=== PATIENT | female | born 1960 | race Caucasian/White ===

== ENCOUNTER 2023-08-08 12:27 | Outpatient (CLI) | payer MEDICARE, MEDICAID, SELFPAY | END 2023-08-08 12:28 | disposition home or self-care (01) | PROVIDERS: PCP Family Medicine; Visit Provider Family Medicine | DX: I10 Essential (primary) hypertension (principal); M10.9 Gout, unspecified | CPT/HCPCS: 80048; 80061; 84460; 85025 ==

== ENCOUNTER 2023-08-21 12:22 | Outpatient (CLI) | payer MEDICARE, MEDICAID, SELFPAY | END 2023-08-21 12:23 | disposition home or self-care (01) | LOC: WOUND 12:24 | PROVIDERS: PCP Family Medicine; Visit Provider Nurse Practitioner Family | DX: I87.312 Chronic venous hypertension (idiopathic) with ulcer of left lower extremity (principal); E11.622 Type 2 diabetes mellitus with other skin ulcer; L97.822 Non-pressure chronic ulcer of other part of left lower leg with fat layer exposed; I89.0 Lymphedema, not elsewhere classified; Z79.84 Long term (current) use of oral hypoglycemic drugs | CPT/HCPCS: 97602; G0463 ==

== ENCOUNTER 2023-10-10 12:20 | Outpatient (CLI) | payer MEDICARE, MEDICAID, SELFPAY | END 2023-10-10 12:21 | disposition home or self-care (01) | PROVIDERS: PCP Family Medicine; Visit Provider Family Medicine | DX: N39.46 Mixed incontinence (principal); I10 Essential (primary) hypertension | CPT/HCPCS: 80048; 85025; 87086 ==

== ENCOUNTER 2023-12-03 12:48 | Outpatient (CLI) | payer MEDICARE, MEDICAID, SELFPAY | END 2023-12-03 12:49 | disposition home or self-care (01) | LOC: WOUND 12:48 | PROVIDERS: PCP Family Medicine; Visit Provider Nurse Practitioner Family | DX: I87.313 Chronic venous hypertension (idiopathic) with ulcer of bilateral lower extremity (principal); E11.43 Type 2 diabetes mellitus with diabetic autonomic (poly)neuropathy; I89.0 Lymphedema, not elsewhere classified; L97.212 Non-pressure chronic ulcer of right calf with fat layer exposed; L97.221 Non-pressure chronic ulcer of left calf limited to breakdown of skin; L97.818 Non-pressure chronic ulcer of other part of right lower leg with other specified severity; L97.828 Non-pressure chronic ulcer of other part of left lower leg with other specified severity; Z79.4 Long term (current) use of insulin; Z79.84 Long term (current) use of oral hypoglycemic drugs | CPT/HCPCS: 97602; G0463 ==

== ENCOUNTER 2023-12-10 14:26 | Outpatient (CLI) | payer MEDICARE, MEDICAID, SELFPAY | END 2023-12-10 14:27 | disposition home or self-care (01) | LOC: WOUND 14:26 | PROVIDERS: PCP Family Medicine; Visit Provider Nurse Practitioner Family | DX: I87.313 Chronic venous hypertension (idiopathic) with ulcer of bilateral lower extremity (principal); E11.43 Type 2 diabetes mellitus with diabetic autonomic (poly)neuropathy; L97.818 Non-pressure chronic ulcer of other part of right lower leg with other specified severity; L97.828 Non-pressure chronic ulcer of other part of left lower leg with other specified severity; Z79.84 Long term (current) use of oral hypoglycemic drugs | CPT/HCPCS: G0463 ==

== ENCOUNTER 2024-01-21 14:58 | Outpatient (CLI) | payer MEDICARE, MEDICAID, SELFPAY | END 2024-01-21 14:59 | disposition home or self-care (01) | LOC: WOUND 14:58 | PROVIDERS: PCP Family Medicine; Visit Provider Nurse Practitioner Family | DX: I87.312 Chronic venous hypertension (idiopathic) with ulcer of left lower extremity (principal); I89.0 Lymphedema, not elsewhere classified; L97.828 Non-pressure chronic ulcer of other part of left lower leg with other specified severity; E11.43 Type 2 diabetes mellitus with diabetic autonomic (poly)neuropathy; Z79.84 Long term (current) use of oral hypoglycemic drugs | CPT/HCPCS: 80053; 83735; 85025; 97602; G0463 ==

== ENCOUNTER 2024-02-12 10:34 | Outpatient (CLI) | payer MEDICARE, MEDICAID, SELFPAY | END 2024-02-12 10:35 | disposition home or self-care (01) | LOC: FBOREF 10:35 | PROVIDERS: PCP Family Medicine; Visit Provider Family Medicine | DX: I10 Essential (primary) hypertension (principal) | CPT/HCPCS: 80048 ==

== ENCOUNTER 2024-04-23 12:51 | Outpatient (CLI) | payer MEDICARE, MEDICAID, SELFPAY | END 2024-04-23 12:52 | disposition home or self-care (01) | LOC: NFLDREF 04-26 12:12 | PROVIDERS: PCP Family Medicine; Referring Provider Family Medicine; Visit Provider Family Medicine | DX: I10 Essential (primary) hypertension (principal); E11.42 Type 2 diabetes mellitus with diabetic polyneuropathy; M17.12 Unilateral primary osteoarthritis, left knee; N18.30 Chronic kidney disease, stage 3 unspecified; B37.31 Acute candidiasis of vulva and vagina; F33.9 Major depressive disorder, recurrent, unspecified; M54.50 Low back pain, unspecified; F31.9 Bipolar disorder, unspecified | CPT/HCPCS: 80048; 85025 ==

== ENCOUNTER 2024-09-08 16:58 | Outpatient (CLI) | payer MEDICARE, MEDICAID, SELFPAY | END 2024-09-08 16:59 | disposition home or self-care (01) | PROVIDERS: PCP Family Medicine; Visit Provider Family Medicine | DX: I10 Essential (primary) hypertension (principal); E78.2 Mixed hyperlipidemia; E11.42 Type 2 diabetes mellitus with diabetic polyneuropathy; E66.01 Morbid (severe) obesity due to excess calories | CPT/HCPCS: 80048; 80061; 84460; 85025 ==

== ENCOUNTER 2024-11-14 09:32 | Outpatient (CLI) | payer MEDICARE, MEDICAID, SELFPAY ==
[2024-11-14] MEDS: PERFLUTREN LIPID MICROSPHERES 2 ML VIAL IVP (10:29)
--- NOTE | 2024-11-14 10:37 | PC.NURSE ---
20 G IV placed in right hand. Definity given per library technical assistant. Iv removed intact once test completed.
== END 2024-11-14 09:33 | disposition home or self-care (01) ==
LOC: RAD 09:33
PROVIDERS: PCP Family Medicine; Visit Provider Family Medicine
DX: I50.32 Chronic diastolic (congestive) heart failure (principal)
CPT/HCPCS: 80048; 93306; Q9957

== ENCOUNTER 2024-12-16 10:16 | Outpatient (CLI) | payer MEDICARE, MEDICAID, SELFPAY | END 2024-12-16 10:17 | disposition home or self-care (01) | LOC: INJ CL 10:18 | PROVIDERS: PCP Family Medicine; Visit Provider Family Medicine | DX: M54.16 Radiculopathy, lumbar region (principal); M51.369 Other intervertebral disc degeneration, lumbar region without mention of lumbar back pain or lower extremity pain | CPT/HCPCS: 62323; J0702; Q9966 ==

== ENCOUNTER 2025-01-02 12:09 | Outpatient (CLI) | payer MEDICARE, MEDICAID, SELFPAY | END 2025-01-02 12:10 | disposition home or self-care (01) | PROVIDERS: PCP Family Medicine; Visit Provider Family Medicine | DX: I12.9 Hypertensive chronic kidney disease with stage 1 through stage 4 chronic kidney disease, or unspecified chronic kidney disease (principal); N18.30 Chronic kidney disease, stage 3 unspecified | CPT/HCPCS: 80048; 83735 ==

== ENCOUNTER 2025-01-27 09:36 | Outpatient (CLI) | payer MEDICARE, MEDICAID, SELFPAY | END 2025-01-27 09:37 | disposition home or self-care (01) | LOC: INJ CL 09:37 | PROVIDERS: PCP Family Medicine; Visit Provider Family Medicine | DX: M25.551 Pain in right hip (principal); M16.11 Unilateral primary osteoarthritis, right hip | CPT/HCPCS: 20610; 77002; Q9966 ==

== ENCOUNTER 2025-02-11 14:16 | Outpatient (CLI) | payer MEDICARE, MEDICAID, SELFPAY | END 2025-02-11 14:17 | disposition home or self-care (01) | LOC: WOUND 14:19 | PROVIDERS: PCP Family Medicine; Visit Provider Nurse Practitioner Family | DX: I87.2 Venous insufficiency (chronic) (peripheral) (principal); I73.9 Peripheral vascular disease, unspecified; L97.222 Non-pressure chronic ulcer of left calf with fat layer exposed; L97.821 Non-pressure chronic ulcer of other part of left lower leg limited to breakdown of skin; I10 Essential (primary) hypertension; E11.9 Type 2 diabetes mellitus without complications; Z79.84 Long term (current) use of oral hypoglycemic drugs | CPT/HCPCS: 97597; G0463 ==

== ENCOUNTER 2025-02-18 13:30 | Outpatient (CLI) | payer MEDICARE, MEDICAID, SELFPAY | END 2025-02-18 13:31 | disposition home or self-care (01) | LOC: WOUND 13:30 | PROVIDERS: PCP Family Medicine; Visit Provider Surgery | DX: I87.2 Venous insufficiency (chronic) (peripheral) (principal); I73.9 Peripheral vascular disease, unspecified; L97.222 Non-pressure chronic ulcer of left calf with fat layer exposed; L97.821 Non-pressure chronic ulcer of other part of left lower leg limited to breakdown of skin; E11.9 Type 2 diabetes mellitus without complications; I50.20 Unspecified systolic (congestive) heart failure; Z79.84 Long term (current) use of oral hypoglycemic drugs | CPT/HCPCS: G0463 ==

== ENCOUNTER 2025-02-25 13:34 | Outpatient (CLI) | payer MEDICARE, MEDICAID, SELFPAY | END 2025-02-25 13:35 | disposition home or self-care (01) | LOC: WOUND 13:34 | PROVIDERS: PCP Family Medicine; Visit Provider Surgery | DX: S90.822A Blister (nonthermal), left foot, initial encounter (principal); I87.2 Venous insufficiency (chronic) (peripheral); I73.9 Peripheral vascular disease, unspecified; E11.9 Type 2 diabetes mellitus without complications; I50.20 Unspecified systolic (congestive) heart failure; Z79.84 Long term (current) use of oral hypoglycemic drugs | CPT/HCPCS: G0463 ==

== ENCOUNTER 2025-03-11 14:03 | Outpatient (CLI) | payer MEDICARE, MEDICAID, SELFPAY | END 2025-03-11 14:04 | disposition home or self-care (01) | LOC: WOUND 14:03 | PROVIDERS: PCP Family Medicine; Referring Provider Family Medicine; Visit Provider Surgery | DX: Z09 Encounter for follow-up examination after completed treatment for conditions other than malignant neoplasm (principal); Z87.2 Personal history of diseases of the skin and subcutaneous tissue; I87.2 Venous insufficiency (chronic) (peripheral); I73.9 Peripheral vascular disease, unspecified; E11.9 Type 2 diabetes mellitus without complications; I50.20 Unspecified systolic (congestive) heart failure; Z79.84 Long term (current) use of oral hypoglycemic drugs | CPT/HCPCS: G0463 ==

== ENCOUNTER 2025-04-07 15:49 | Outpatient (CLI) | payer MEDICARE, MEDICAID, SELFPAY ==
--- NOTE | 2025-04-07 16:00 | CRLHL7_ITS ---
For Patients: As a result of the Century Cures Act, medical imaging exams and procedure reports are released immediately into your electronic medical record. You may view this report before your referring provider. If you have questions, please contact your health care provider. Indication: DISORDERS OF ADRENAL GLANDS Technique: Noncontrast CT abdomen Please note that all CT scans at this facility use dose modulation, iterative reconstruction, and/or weight-based dosing when appropriate to reduce radiation dose to as low as reasonably achievable. Comparison: 04/26/2015 Findings: Mild scarring is present in both lower lobes. No pleural effusion. Noncontrast enhanced liver is normal. No calcified gallstones. Spleen is within normal limits. Normal pancreas. Right adrenal gland and right kidney are normal. Left kidney is unremarkable. Incidental splenule is present. Atherosclerotic changes. Primarily fat density left adrenal mass measures 6.9 cm, previously measuring 4.4 cm. Degenerative disc disease lower thoracic spine with chronic wedging. No acute fracture. Incidental bone island is similar. Impression: Benign mostly fat density left adrenal myelolipoma measuring 6.9 cm, increased in size from prior when it measured 4.4 cm. Please note that all CT scans at this facility use dose modulation, iterative reconstruction, and/or weight-based dosing when appropriate to reduce radiation dose to as low as reasonably achievable. Dictated by Rajeev Gupta MD @ 04/08/2025 9:37:14 AM (Electronically Signed)
== END 2025-04-07 15:50 | disposition home or self-care (01) ==
LOC: CT 15:50
PROVIDERS: PCP Family Medicine; Visit Provider Family Medicine
DX: E27.8 Other specified disorders of adrenal gland (principal)
CPT/HCPCS: 74150

== ENCOUNTER 2025-04-10 11:23 | Outpatient (CLI) | payer MEDICARE, MEDICAID, SELFPAY | END 2025-04-10 11:24 | disposition home or self-care (01) | LOC: NFLDREF 04-15 09:58 | PROVIDERS: PCP Family Medicine; Referring Provider Family Medicine; Visit Provider Family Medicine | DX: E11.42 Type 2 diabetes mellitus with diabetic polyneuropathy (principal) | CPT/HCPCS: 82043; 82570 ==